=== PATIENT | male | born 1940 | race Two or more races ===

== ENCOUNTER 2017-01-04 07:42 | Day surgery (SDC) | payer BC ==
[2017-01-03 10:38] VITALS: BMI 27.8
--- NOTE | 2017-01-03 11:48 | PREOPHP ---
DATE OF ADMISSION: 01/04/2017 HISTORY OF PRESENT ILLNESS: This 76-year-old patient is admitted for elective cataract surgery of t he right eye. The patient has had decreased vision for a number of years which has been progressive in nature without prior history of eye disease or injury. The patient does have a positive systemi c history for hypertension and for chronic leg pain. CURRENT MEDICATIONS INCLUDE: 1. Lisinopril. 2. [place]. ALLERGIES: THERE ARE NO KNOWN ALLERGIES. PHYSICAL EXAMINATION: Visual acuity best corrected is 20/400 in the right eye and 20/200 in the lef t eye. Slit lamp examination reveals nuclear sclerotic and posterior subcapsular cataract changes p resent in both eyes. Applanation tonometry is 15 mmHg. Examination of the retina is within normal limits. DIAGNOSIS: Cataract, right eye. PLAN: Cataract extraction with lens implant, right eye. The risks and alternatives to the surgery have been discussed with the patient as well as the hope for improvement of visual acuity in order t o give the patient greater ability to perform activities of daily living. The patient understands t his and agrees to proceed. Dictated By: VICTORIA WYMAN/PABLO Conf#: [id number] DID#: [id number]
[~2017-01-04] VITALS: Ht 175.3 cm; Wt 78.0 kg
[2017-01-04] VITALS (8 sets, daily range): BP systolic 119–162; BP diastolic 45–77; PULSE 66–72; RESP 16–27; Ht 175.3 cm; Wt 78.0 kg
[~2017-01-04 07:42] MED LIST: LIDOCAINE 2% (SDV) 5 ML INJ ONE; PROPOFOL 200 MG INJ ONE
[2017-01-04] MEDS ORDERED: LISI20TA11 PO (08:45)
[2017-01-04] MEDS ORDERED: TRAM50TA2 PO (08:45)
[2017-01-04] MEDS ORDERED: AMLO5TAB4 PO (08:47)
[2017-01-04] MEDS ORDERED: CHOL100062 PO (08:47)
[2017-01-04] MEDS ORDERED: TROPICAMIDE 1% 2 ML OPH OPER SCH (09:00)
[2017-01-04] MEDS ORDERED: CYCLOPENTOLATE/PHENYLEPH 2 ML OPH OPER SCH (09:00)
[2017-01-04] MEDS ORDERED: DICLOFENAC 0.1% 2.5 ML OPH OPER SCH (09:00)
[2017-01-04] MEDS ORDERED: CIPROFLOXACIN 0.3% 2.5 ML OPH OPER SCH (09:00)
[2017-01-04] MEDS ORDERED: CARBACHOL 0.01% 1.5 ML OPH INJ ONE (10:38)
[2017-01-04] MEDS ORDERED: LIDOCAINE 4% (MPF) 5 ML INJ ONE (10:38)
[2017-01-04] MEDS ORDERED: DEXAMETHASONE 4 MG/ML 1 ML INJ ONE (10:38)
[2017-01-04] MEDS ORDERED: HYALURONATE/CHONDROITIN 1ML OPH INJ ONE (10:38)
[2017-01-04] MEDS ORDERED: ONDANSETRON 4 MG INJ IV PRN (11:30)
[2017-01-04] MEDS ORDERED: EPHEDrine SULFATE 50 MG/5 ML SYG IV PRN (11:30)
[2017-01-04] MEDS ORDERED: morphine (1 MG/ML) 10ML SYRINGE IV PRN ×3 (11:30)
[2017-01-04] MEDS ORDERED: LABETALOL HCL 20MG INJ IV PRN (11:30)
[2017-01-04] MEDS ORDERED: HYDROmorphONE (0.2 MG/ML) 10ML SYG IV PRN ×3 (11:30)
[2017-01-04] MEDS ORDERED: MIDAZOLAM 1 MG/ML 2 ML INJ IV PRN (11:30)
[2017-01-04] MEDS ORDERED: FENTAnyl 50 MCG/ML VIAL IV PRN ×2 (11:30)
[2017-01-04] MEDS ORDERED: ATROPINE 1 MG/10 ML SYRINGE IV PRN (11:30)
[2017-01-04] MEDS ORDERED: OXYCODONE/ACETAMINOPHEN (5/325) TAB PO PRN ×2 (11:30)
[2017-01-04] MEDS ORDERED: MEPERIDINE 25 MG INJ IV PRN (11:30)
[2017-01-04] MEDS ORDERED: hydrALAzine 20 MG INJ IV PRN (11:30)
[2017-01-04] MEDS ORDERED: DIPHENHYDRAMINE 50 MG INJ IV PRN (11:30)
[2017-01-04] MEDS ORDERED: CEFAZOLIN 1 GM INJ INJ ONE (12:07)
--- NOTE | 2017-01-05 16:54 | OPR ---
DATE OF OPERATION: 01/04/2017 PREOPERATIVE DIAGNOSIS: Cataract, right eye. POSTOPERATIVE DIAGNOSIS: Cataract, right eye. OPERATION PERFORMED: Cataract extraction with lens implant, right eye. SURGEON: Victoria Regan MD. ANESTHESIA: Local standby. ANESTHESIOLOGIST: Dr. Main. PROCEDURE: The patient was brought to the operating room and placed on the table with an IV in plac e and the patient attached to an equipment monitor phototypesetting. Oxygen was given via face mask. After some intravenous sedation was administered, local anesthesia was given using Xylocaine 2% with epinephrine, mixed with Marcaine 0.5%. This was given in a lid block and retrobulbar injection. The patient was then prepped and draped in the usual sterile manner. A wire lid speculum was inserted between the lids of the right eye. A Superblade was used to enter t he anterior chamber at the corneoscleral limbus at the 10:30 o'clock position. A separate incision w as made using a 3.0-mm keratome which entered the corneoscleral junction at the 12 o'clock position. Through this 3-mm opening, an irrigating cystitome was introduced into the anterior chamber. The ch [place] was filled with Viscoat and an anterior capsulotomy was performed. Balanced salt solution was then used for hydrodissection of the lens. A phacoemulsification handpiece was then brought into th e field and introduced into the anterior chamber. The lens nucleus was emulsified using a deep groov e and cracking the nucleus into quadrants. Following this, each quadrant was aspirated and emulsifie d at the pupillary margin. After this was completed, the irrigation/aspiration handpiece was brought to the field, introduced i nto the posterior chamber, and the lens cortical material was removed. When this was completed, savana tional Viscoat was injected into the anterior and posterior chambers. The 3-mm opening had its internal lips enlarged, and then the posterior chamber intraocular lens jacobo suring 22.0 diopters (Bausch and Lomb model LI61AO) was then injected into the posterior chamber usi ng the lens injector system. After the leading haptic was introduced into the capsular bag and the l ens optic was present in the center of the eye, the injector was removed and the trailing haptic was grasped with non-toothed forceps and introduced into the capsular fold superiorly. A Sinskey hook w as then used to rotate the intraocular lens so that the lips were oriented in the horizontal meridia n. One 10-0 nylon suture was placed across the wound. Prior to tying, the irrigation/aspiration handpiece was reintroduced into the anterior chamber to re move the Viscoat. Miochol was instilled to constrict the pupil, and then the 10-0 nylon suture was t ied. The ends were cut short and then the knot was buried. Then, 0.5 mL of dexamethasone and 0.5 mL of Ancef were injected into the sub-Tenon space in the infe rior fornix. Ciloxan drops were then placed on the surface of the eye. The speculum was removed and a patch was applied. The patient then left the operating room in satisfactory condition. Dictated By: VICTORIA WYMAN/PABLO Conf#: [id number] DID#: [id number]
== END 2017-01-04 13:05 | disposition home or self-care (01) ==
LOC: SDS 07:42
PROVIDERS: ATTEND Ophthalmology
DX: H25.11 Age-related nuclear cataract, right eye (principal); I10 Essential (primary) hypertension; E11.9 Type 2 diabetes mellitus without complications; E66.9 Obesity, unspecified; Z68.25 Body mass index [BMI] 25.0-25.9, adult
CPT/HCPCS: 66984; J0690; J1100; V2632; Z7512; Z7610

== ENCOUNTER 2017-02-15 05:52 | Day surgery (SDC) | payer BC ==
--- NOTE | 2017-02-14 13:04 | PREOPHP ---
DATE OF ADMISSION: 02/15/2017 HISTORY OF PRESENT ILLNESS: This 77-year-old patient is admitted for elective cataract surgery of t he left eye. The patient has had progressive deterioration of vision in both eyes over a number of years and previously underwent cataract surgery 6 weeks ago on the left eye with good visual improve ment. The patient's history is also positive for hypertension and chronic leg pain. CURRENT MEDICATIONS: Include: 1. Lisinopril. 2. [place]. ALLERGIES: THERE ARE NO KNOWN ALLERGIES. PHYSICAL EXAMINATION: The visual acuity is 20/40 in the right eye and 20/80 in the left eye. There is a posterior chamber intraocular lens in the right eye, and in the left eye there are posterior s ubcapsular cataract changes. Applanation tonometry is 15 mmHg. Examination of the retina is within normal limits. DIAGNOSIS: Cataract, left eye. PLAN: Cataract extraction with lens implant, left eye. The risks and alternatives to the surgery h ave been discussed with the patient, and the patient has decided to proceed with surgery in hopes of having improvement of visual acuity leading to a greater ability to perform activities of daily adelaide ing. Dictated By: VICTORIA WYMAN/PABLO Conf#: [id number] DID#: [id number]
[~2017-02-15] VITALS: Ht 170.2 cm; Wt 82.0 kg
[2017-02-15] VITALS (7 sets, daily range): BP systolic 120–149; BP diastolic 65–79; PULSE 78–101; RESP 16–33; Ht 170.2 cm; Wt 82.0 kg
[~2017-02-15 05:52] MED LIST changes: +AMLO5TAB4 PO; +CHOL100062 PO; -LIDOCAINE 2% (SDV) 5 ML INJ ONE; +LISI20TA11 PO; -PROPOFOL 200 MG INJ ONE; +TRAM50TA2 PO
[2017-02-15] MEDS ORDERED: CYCLOPENTOLATE/PHENYLEPH 2 ML OPH OPER SCH (06:00)
[2017-02-15] MEDS ORDERED: DICLOFENAC 0.1% 2.5 ML OPH OPER SCH (06:00)
[2017-02-15] MEDS ORDERED: TROPICAMIDE 1% 2 ML OPH OPER SCH (06:00)
[2017-02-15] MEDS ORDERED: CIPROFLOXACIN 0.3% 2.5 ML OPH OPER SCH (06:00)
[2017-02-15] MEDS ORDERED: CEFAZOLIN 1 GM INJ INJ ONE (08:18)
[2017-02-15] MEDS ORDERED: CARBACHOL 0.01% 1.5 ML OPH INJ IO ONE (08:18)
[2017-02-15] MEDS ORDERED: DEXAMETHASONE 4 MG/ML 1 ML INJ INJ ONE (08:18)
[2017-02-15] MEDS ORDERED: HYALURONATE/CHONDROITIN 1ML OPH INJ IO ONE (08:18)
[2017-02-15] MEDS ORDERED: PROPOFOL 20 ML ONE (08:32)
[2017-02-15] MEDS ORDERED: GLYCOPYRROLATE 0.4 MG INJ ONE (08:32)
[2017-02-15] MEDS ORDERED: HYALURONATE/CHONDROITIN 1ML OPH INJ ONE (09:12)
[2017-02-15] MEDS ORDERED: LIDOCAINE 4% (MPF) 5 ML INJ ONE (09:12)
[2017-02-15] MEDS ORDERED: EPINEPHrine 1 MG INJ ONE (09:12)
[2017-02-15] MEDS ORDERED: DEXAMETHASONE 4 MG/ML 1 ML INJ ONE (09:12)
[2017-02-15] MEDS ORDERED: GENTAMICIN 80 MG INJ ONE (09:12)
[2017-02-15] MEDS ORDERED: CEFAZOLIN 1 GM INJ ONE (09:12)
[2017-02-15] MEDS ORDERED: CARBACHOL 0.01% 1.5 ML OPH INJ ONE (09:12)
--- NOTE | 2017-02-15 12:18 | OPR ---
DATE OF OPERATION: 02/15/2017 PREOPERATIVE DIAGNOSIS: Cataract, left eye. POSTOPERATIVE DIAGNOSIS: Cataract, left eye. OPERATION PERFORMED: Cataract extraction with lens implant, left eye. SURGEON: Victoria Regan MD ANESTHESIA: Boom Alarcon DO PROCEDURE: The patient was brought to the operating room and placed on the table with an IV in plac e and the patient attached to an lunchroom monitor. Oxygen was given via face mask. After some intravenous sedation was administered, local anesthesia was given using Xylocaine 2% with epinephrine, mixed with Marcaine 0.5%. This was given in a lid block and retrobulbar injection. The patient was then prepped and draped in the usual sterile manner. A wire lid speculum was inserted between the lids of the left eye. A Superblade was used to enter th e anterior chamber at the corneoscleral limbus at the 10:30 o'clock position. A separate incision wa s made using a 3.0-mm keratome which entered the corneoscleral junction at the 12 o'clock position. Through this 3-mm opening, an irrigating cystotome was introduced into the anterior chamber. The isaiah mber was filled with Viscoat and an anterior capsulotomy was performed. Balanced salt solution was t hen used for hydrodissection of the lens. A phacoemulsification handpiece was then brought into the field and introduced into the anterior chamber. The lens nucleus was emulsified using a deep groove and cracking the nucleus into quadrants. Following this, each quadrant was aspirated and emulsified at the pupillary margin. After this was completed, the irrigation/aspiration handpiece was brought to the field, introduced i nto the posterior chamber, and the lens cortical material was removed. When this was completed, savana tional Viscoat was injected into the anterior and posterior chambers. The 3-mm opening had its internal lips enlarged, and then the posterior chamber intraocular lens jacobo suring 22.0 diopters (Bausch and Lomb model LI61AO) was then injected into the posterior chamber usi ng the lens injector system. After the leading haptic was introduced into the capsular bag and the l ens optic was present in the center of the eye, the injector was removed and the trailing haptic was grasped with non-toothed forceps and introduced into the capsular fold superiorly. A Sinskey hook w as then used to rotate the intraocular lens so that the lips were oriented in the horizontal meridia n. One 10-0 nylon suture was placed across the wound. Prior to tying, the irrigation/aspiration handpiece was reintroduced into the anterior chamber to re move the Viscoat. Miochol was instilled to constrict the pupil, and then the 10-0 nylon suture was t ied. The ends were cut short and then the knot was buried. Then, 0.5 mL of dexamethasone and 0.5 mL of Ancef were injected into the sub-Tenon space in the infe rior fornix. Ciloxan drops were then placed on the surface of the eye. The speculum was removed and a patch was applied. The patient then left the operating room in satisfactory condition. Dictated By: VICTORIA WYMAN/PABLO Conf#: [id number] DID#: [id number]
== END 2017-02-15 10:04 | disposition home or self-care (01) ==
LOC: SDS 05:52
PROVIDERS: ATTEND Ophthalmology
DX: H26.9 Unspecified cataract (principal); I10 Essential (primary) hypertension
CPT/HCPCS: 66984; J0171; J0690; J1100; J1580; V2632; Z7512; Z7610